=== PATIENT | male | born 1985 | race Caucasian/White ===

== ENCOUNTER 2017-02-28 11:05 | Emergency (ER) | payer SELFPAY ==
[~2017-02-28] VITALS: Ht 185.4 cm; Wt 83.9 kg
[~2017-02-28 11:05] MED LIST: FIORICET 325 MG1 TAB PO; FLEXERIL10 MG PO; GABAPENTIN300 MG PO; INDOCIN25 M1 PO; MEDROL 4MG. DOSE4 MG PO; MOTRIN600 M1 PO; NOMEDS *; PHENERGAN 25MG.25 M1 PO; PREDNISONE 10MG10 MG PO; VICODIN 5/500 T1 TAB PO; VOLTAREN75 MG PO
--- NOTE | 2017-02-28 11:34 | Urgent Treatment Center Report ---
History of Present Issue Date/Time Seen by Provider 02/28/17 1126 Visit Reason Pt arrived:Walked Presenting Problem:PT STATES COUGH FOR TWO MONTHS THAT IS PRODUCTIVE AT TIMES BUT IS UNSURE OF COLOR. STATES SORENESS TO CHEST AND RIBS FROM COUGH. Location if Accident: Onset of symptoms date/time:/ or onset unknown for:MEDICAL HX UNKNOWN Have you (or family members/close friends) recently traveled outside the [place]? N If Yes, where/when: Have you had exposure to infectious disease within the past month? TB? Other? Specify: Patient states that he has had a cough for around 2 to 3 months on and off. States that sometimes he will cough something up and sometimes its just dry and hacky. States that now he is having soreness in his ribs on the right side and thinks he may have broken one this morning coughing ALLERGIES Coded Allergies: erythromycin base (02/28/17) ketorolac (From TORADOL) (02/28/17) tramadol (02/28/17) History Medical History General CAD? No Angina: No AL: No Hypertension? No Hyperlipidemia? No CHF? No DVT? No PE? No COPD? No Asthma? Yes Anemia? No GERD? No Gastric ulcers? No GI Bleed? No Hernia? No Thyroid Problems? No Hypothyroidism? No CVA? No Seizures? No Diabetes? No Renal Insuffiency? No UTI? No Stones? No BPH? No GB Disease: No Nephritic Syndrome? No Asplenia? No Hepatitis? No Sickle Cell Disease? No Arthritis? No Migraines? No Cataracts? No Glaucoma? No MRSA? No HIV? No TB? No Anxiety? No Depression? No Cancer? No Immunization HX DT/Tetanus 1-4 Years Ago Surgical Hx Previous Surgery?Y R KNEE TONSILECTOMY EAR TUBES Social History Smoking Hx Smoker: Current Every Day Smoker Tobacco: Yes Type Cigarettes Packs/day < 1 Pack Alcohol Alcohol: No Review of Systems All Other Systems Reviewed and Negative Respiratory cough Musculoskeletal other Physical Exam Vital Signs Vital Signs Date Time Temp Pulse Resp B/P Pulse O2 O2 Flow FiO2 Ox Delivery Rate 02/28 1113 98.6 80 18 126/66 99 General Appearance normal appearance, WD/WN, no apparent distress Respiratory Status Yes: trachea midline, chest symmetrical. No: respiratory distress. Lung Sounds bilateral: normal breath sounds, lungs clear. 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 No Results/Orders Orders Procedure Date/time Status [id number] VIEWS 02/28 1124 Active CHEST(2 VIEWS-NOT PORTABLE) 02/28 1118 Active Departure Departure Time of Disposition 1219 Disposition DC Home or Self Care(routine) Clinical Impression Primary Impression: Upper respiratory infection Qualifiers: URI type: unspecified URI Qualified Code: J06.9 - Acute upper respiratory infection, unspecified Condition STABLE Referrals NO REFERRAL (Family) Patient Instructions Cough, DI for Cough -- Adult, DI for Sinusitis, Sinus Headache Additional Instructions Drink plenty of fluids Muccinex as directed Take medications as prescribed Follow up with family doctor Discharge Counseling Counseled pt/family regarding diagnosis, test results, medications/RX, home care, follow up needs Prescriptions Current Visit Scripts ACETAMINOPHEN/DIPHENHYDRAMINE (Percogesic 325-12.5 MG Tablet) 1 TAB PO Q4HP PRN pain #20 TAB Amoxicillin Trihydrate (Amoxicillin 500MG) 500 MG PO TID #21 CAP Methylprednisolone (Medrol Dose Joel) 4 MG PO UD #1 JOEL TAKE DIRECTED ON PACKAGING at 1231
--- NOTE | 2017-02-28 11:34 | Urgent Treatment Center Report ---
History of Present Issue Date/Time Seen by Provider 02/28/17 1126 Visit Reason Pt arrived:Walked Presenting Problem:PT STATES COUGH FOR TWO MONTHS THAT IS PRODUCTIVE AT TIMES BUT IS UNSURE OF COLOR. STATES SORENESS TO CHEST AND RIBS FROM COUGH. Location if Accident: Onset of symptoms date/time:/ or onset unknown for:MEDICAL HX UNKNOWN Have you (or family members/close friends) recently traveled outside the [place]? N If Yes, where/when: Have you had exposure to infectious disease within the past month? TB? Other? Specify: Patient states that he has had a cough for around 2 to 3 months on and off. States that sometimes he will cough something up and sometimes its just dry and hacky. States that now he is having soreness in his ribs on the right side and thinks he may have broken one this morning coughing ALLERGIES Coded Allergies: erythromycin base (02/28/17) ketorolac (From TORADOL) (02/28/17) tramadol (02/28/17) History Medical History General CAD? No Angina: No [place]: No Hypertension? No Hyperlipidemia? No CHF? No DVT? No PE? No COPD? No Asthma? Yes Anemia? No GERD? No Gastric ulcers? No GI Bleed? No Hernia? No Thyroid Problems? No Hypothyroidism? No CVA? No Seizures? No Diabetes? No Renal Insuffiency? No UTI? No Stones? No BPH? No GB Disease: No Nephritic Syndrome? No Asplenia? No Hepatitis? No Sickle Cell Disease? No Arthritis? No Migraines? No Cataracts? No Glaucoma? No MRSA? No HIV? No TB? No Anxiety? No Depression? No Cancer? No Immunization HX DT/Tetanus 1-4 Years Ago Surgical Hx Previous Surgery?Y R KNEE TONSILECTOMY EAR TUBES Social History Smoking Hx Smoker: Current Every Day Smoker Tobacco: Yes Type Cigarettes Packs/day < 1 Pack Alcohol Alcohol: No Review of Systems All Other Systems Reviewed and Negative Respiratory cough Musculoskeletal other Physical Exam Vital Signs Vital Signs Date Time Temp Pulse Resp B/P Pulse O2 O2 Flow FiO2 Ox Delivery Rate 02/28 1113 98.6 80 18 126/66 99 General Appearance normal appearance, WD/WN, no apparent distress Respiratory Status Yes: trachea midline, chest symmetrical. No: respiratory distress. Lung Sounds bilateral: normal breath sounds, lungs clear. 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 No Results/Orders Orders Procedure Date/time Status [id number] VIEWS 02/28 1124 Active CHEST(2 VIEWS-NOT PORTABLE) 02/28 1118 Active Departure Departure Time of Disposition 1219 Disposition DC Home or Self Care(routine) Clinical Impression Primary Impression: Upper respiratory infection Qualifiers: URI type: unspecified URI Qualified Code: J06.9 - Acute upper respiratory infection, unspecified Condition STABLE Referrals NO REFERRAL (Family) Patient Instructions Cough, DI for Cough -- Adult, DI for Sinusitis, Sinus Headache Additional Instructions Drink plenty of fluids Muccinex as directed Take medications as prescribed Follow up with family doctor Discharge Counseling Counseled pt/family regarding diagnosis, test results, medications/RX, home care, follow up needs Prescriptions Current Visit Scripts ACETAMINOPHEN/DIPHENHYDRAMINE (Percogesic 325-12.5 MG Tablet) 1 TAB PO Q4HP PRN pain #20 TAB Amoxicillin Trihydrate (Amoxicillin 500MG) 500 MG PO TID #21 CAP Methylprednisolone (Medrol Dose Joel) 4 MG PO UD #1 JOEL TAKE DIRECTED ON PACKAGING at 1231
[2017-02-28] MEDS ORDERED: PERCOGESIC1 TAB PO (12:30)
[2017-02-28] MEDS ORDERED: MEDROL 4MG. DOSE4 MG PO (12:31)
[2017-02-28] MEDS ORDERED: AMOXICILLIN 50500 MG PO (12:31)
[2017-02-28 12:33] VITALS: BP 126/66
--- NOTE | 2017-02-28 14:24 | RADIOLOGY REPORT PS360 ---
CHEST(2 VIEWS-NOT PORTABLE) INDICATION: Persistent cough COMPARISON: PA and lateral chest 04/06/2014 FINDINGS: The lung garcía are well expanded and appear clear of infiltrate. The cardiomediastinal silhouette and vascularity are normal. The costophrenic angles are clear. The bony thorax is normal. IMPRESSION: Normal chest.
--- NOTE | 2017-02-28 14:24 | RADIOLOGY REPORT PS360 ---
[id number] VIEWS COMPARISON: PA and lateral chest same date HISTORY: Right chest wall pain from coughing TECHNIQUE: The oblique views right ribs FINDINGS: All the right ribs 1 through 12 are visualized and appear intact with no evidence of recent or old fracture. There is no pneumothorax. Soft tissues and chest wall per normal. IMPRESSION: Negative right ribs 1 through 12
== END 2017-02-28 12:34 | disposition home or self-care (01) ==
LOC: UTC 11:05
DX: J06.9 Acute upper respiratory infection, unspecified (principal)